=== PATIENT | male | born 1995 | race Caucasian/White ===

== ENCOUNTER 2018-08-23 15:54 | Emergency (ER) | payer OTHER ==
[2018-08-23] MEDS ORDERED: HYDROcodone/Acetaminophen 10/325 mg Tablet ONE (17:24)
[2018-08-23] MEDS ORDERED: Diazepam 5 MG TAB ONE (17:25)
== END 2018-08-23 18:12 | disposition home or self-care (01) ==
LOC: ERS 15:54
DX: M54.5 Low back pain (principal)
CPT/HCPCS: 99283